=== PATIENT | male | born 1980 | race Caucasian/White ===

== ENCOUNTER 2021-09-02 11:15 | Emergency (ER) | payer OTHER, SELFPAY ==
--- NOTE | ~2021-09-02 | XR_ITS ---
EXAMINATION: XR hand LT 2V DATE: 09/02/2021 11:47 INDICATION: Left hand injury. TECHNIQUE: 2 views of left hand on 3 radiographs were obtained. COMPARISON: None. FINDINGS: Bone alignment is normal. No fracture. 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 There is mild osteoarthritis of first and second metacarpophalangeal joints and second distal interphalangeal joint. IMPRESSION: 1. Mild polyarticular osteoarthritis. Reviewed, dictated and finalized at location B.
[2021-09-02 11:24] VITALS: BP 175/88; PULSE 78; RESP 16; TEMP 36.6; O2SAT 98
--- NOTE | 2021-09-02 11:50 | ED.UPPEXIN ---
HPI - Extremity Injury (Upper) General Chief Complaint: Extremity Injury, Upper Stated Complaint: smashed left hand Source: patient Mode of arrival: ambulatory Limitations: no limitations History of Present Illness HPI narrative: patient presents with some left hand injury after he got it caught while at work between concrete and work equipment, causing pain and some swelling with bruising otherwise has good range of motion with some no numbness or tingling. complaint: injury to: left Other Extremity Injury: Left: hand ( mild bruising and swelling) Other injuries: none Handedness: right Place: work Severity: mild Severity scale (1-10): 3 Related Data Home Medications Medication Instructions Recorded Confirmed No Home Medications 09/02/21 09/02/21 Allergies Allergy/AdvReac Type Severity Reaction Status Date / Time No Known Allergies Allergy Verified 09/02/21 11:30 Review of Systems Review of Systems: All systems reviewed & are unremarkable except as noted in HPI and below PMFSH Past Medical History Medical History Patient denies medical problems Exam Const: General: healthy appearing and no acute distress HENMT: Head: normal to inspection Neck: Neck: normal visual inspection Chest: Chest palpation & inspection: normal inspection of the chest Resp: Effort & Inspection: normal respiratory effort Auscultation: clear to auscultation bilaterally Cardio: Rate: regular rate Rhythm: regular rhythm GI: GI Palp: Yes Soft to palpation Rectal Exam: normal sphincter tone Skin: General skin exam: normal color Rashes: no rashes Neuro: General: patient oriented x3, moves all extremities, no meningeal signs and no focal motor deficits Extrem: General: normal to inspection Other: left 3rd and 2nd finger with some mild bruising and swelling Psych: Mental Status: mental status grossly normal Affect: normal affect Course Course Emergency Course: patient declined any pain medication, had x-ray performed and reviewed with patient. Vital Signs Vital signs: Vital Signs Temperature 36.6 C 09/02/21 11:24 Pulse Rate 78 09/02/21 11:24 Respiratory Rate 16 09/02/21 11:24 Blood Pressure 175/88 H 09/02/21 11:24 Pulse Oximetry 98 09/02/21 11:24 Oxygen Delivery Room Air 09/02/21 11:24 Temperature 36.6 C 09/02/21 11:24 Pulse Rate 78 09/02/21 11:24 Respiratory Rate 16 09/02/21 11:24 Blood Pressure 175/88 H 09/02/21 11:24 Pulse Oximetry 98 09/02/21 11:24 Oxygen Delivery Room Air 09/02/21 11:24 Critical Care Time Critical Care Time Critical Care Time: No Discharge Plan Discharge Clinical Impression: Finger sprain Patient Disposition: Home, Self-Care Condition: Stable Instructions: Antibiotic Form, Finger Sprain (ED) Additional Instructions: advised to take Tylenol or Motrin for pain discomfort, can use ice to affected area and follow-up with primary care physician if symptoms persist or worsen. Prescriptions: No Action No Home Medications Follow-up/Referrals: UNKNOWN,DOCTOR [Primary Care Provider] - Time of Disposition: 12:11
[2021-09-02 12:26] VITALS: BP 148/98; PULSE 71; RESP 18; TEMP 36.6; O2SAT 95
== END 2021-09-02 12:26 | disposition home or self-care (01) ==
PROVIDERS: Emergency Provider Emergency Medicine
DX: S63.611A Unspecified sprain of left index finger, initial encounter (principal); S63.613A Unspecified sprain of left middle finger, initial encounter; W22.8XXA Striking against or struck by other objects, initial encounter
CPT/HCPCS: 73120; 99283